=== PATIENT | female | born 1980 ===

== ENCOUNTER → 2019-11-07 12:11 | Outpatient (CLI) | payer OTHER, SELFPAY ==
--- NOTE | ~2019-11-07 | MR_ITS ---
EXAMINATION: MR shoulder LT w con DATE: 11/07/2019 13:54 INDICATION: Acute onset left shoulder pain TECHNIQUE: Magnetic resonance imaging (MRI) of the left shoulder was performed following intra-artic ular gadolinium contrast injection and without intravenous contrast. Details of the glenohumeral join t injection have been dictated separately. Sequences included axial T2-weighted FS FSE, axial T1-brown ghted FS FSE, coronal oblique T1-weighted FS FSE, coronal oblique T2-weighted FSE, sagittal T2-weight ed FS FSE, sagittal T1-weighted FSE, and ABER (abduction external rotation) T1-weighted FS FSE. COMPARISON: None. FINDINGS: Coracoacromial arch: The acromion undersurface is curved in morphology (type II). The coracoacromial ligament is normal. A cromioclavicular joint is normal. Rotator cuff: Supraspinatus tendinopathy without discrete tear. The infraspinatus and teres minor are normal. The s ubscapularis is normal. There is small amount of contrast infiltrating into the deeper fibers of the distal teres minor muscle without evident discontinuity to the tendon or muscle fibers and which is n ot evident on the fluoroscopic image taken immediately following joint injection likely resulting fro m post injection extravasation rather than filling a pre-existing tear. Biceps tendon, glenoid labrum and glenohumeral cartilage: The long head of the biceps tendon appears attenuated and split into 2 bundles at the level of the in tertubercular groove. Assessment is however limited by the atypical absence of surrounding fluid sign al despite the distention of the glenohumeral joint space resulting from the contrast injection which suggests possible secondary scarring along the tendon sheath. The intra-articular portion of the tristen g head biceps tendon is torn with the frayed tear margin located within the biceps danielle sheath appr oximately 1-1.5 cm proximal to the cephalad entrance to the intertubercular groove. There is also bee n avulsion of the free edge at the 12:00 position of the glenoid labrum where the free edge is trunca kelvin with flat contour at the normal site of the insertion of the long head biceps tendon. Labrum is o therwise intact. Glenohumeral cartilage is normal. Bones and other: Normal marrow signal with no edema, fracture or abnormal marrow replacing process. No abnormal fluid signal in the subacromial/subdeltoid bursa to suggest bursitis. IMPRESSION: 1. Avulsion of the long head biceps tendon from the biceps labral complex with associated avulsion of the free edge of the superior glenoid labrum. 2. No fluid signal or injected contrast extending into the long head biceps tendon sheath suggesting secondary scarring. 3. Mild supraspinatus tendinopathy without discrete tear. Reviewed, dictated and finalized at location A. IMPRESSION: 1. Avulsion of the long head biceps tendon from the biceps labral complex with associated avulsion of the free edge of the superior glenoid labrum. 2. No fluid signal or injected contrast extending into the long head biceps ten don sheath suggesting secondary scarring. 3. Mild supraspinatus tendinopathy without discrete tear.
--- NOTE | ~2019-11-07 | XR_ITS ---
EXAMINATION: XR fl inj shoulder LT - MR/CT DATE: 11/07/2019 13:18 INDICATION: Left shoulder pain TECHNIQUE: A time-out was performed to verify the patient's name, date of , and procedure to b e performed. The procedure including the risks and benefits was discussed with the patient. Risks dis cussed included bleeding and infection. The patient understood the risks and agreed to proceed. The s kin overlying the left shoulder joint was prepared and draped in usual sterile fashion. The skin and subcutaneous tissues were infiltrated with 1% lidocaine for local anesthesia. A 22 G needle was adva nced under fluoroscopic guidance into the joint. Injectate consisting of 12 mL of 1:200 0.1 mmol/kg M ultihance, 1:4 1% lidocaine, and 1:4 Omnipaque 240 was instilled. The needle was removed and the entr y site was cleaned and dressed. There were no immediate complications. Fluoroscopy exposure time was 0.3 minutes. The DAP for this procedure was 0.707 Gycm2. FINDINGS: Real-time fluoroscopy demonstrates the needle and contrast in the left glenohumeral joint. IMPRESSION: 1. Successful left glenohumeral joint injection of contrast for subsequent MR arthrography. Reviewed, dictated and finalized at location B. IMPRESSION: 1. Successful left glenohumeral joint injection of contrast for subsequent MR a rthrography.
== END ==
PROVIDERS: Visit Provider Orthopaedic Surgery
DX: M75.82 Other shoulder lesions, left shoulder (principal)
CPT/HCPCS: 23350; 73222; 77002; A9577; Q9966